=== PATIENT | female | born 1970 | race Caucasian/White ===

== ENCOUNTER 2021-11-19 15:08 | Emergency (ER) | payer BC, OTHER ==
[~2021-11-19 15:08] MED LIST: ADVI200T PO; CALC1CHW PO; OMEP1CAP73 PO; VITMTA PO
[2021-11-19 17:42] LABS: BASO # 0.1 10^3/uL (0.0-0.2); BASO % 0.9 % (0.0-1.0); EOS # 0.2 10^3/uL (0.0-0.5); EOS % 2.5 % (0.0-3.0); HEMATOCRIT 45.3 % (36.0-47.0); HEMOGLOBIN 14.3 g/dl (12.0-15.5); LYMPH # 2.5 10^3/uL (1.5-5.0); LYMPH % 33.6 % (24.0-44.0); MEAN CORPUSCULAR HEMOGLOBIN 27.2 pg (27.0-33.0); MEAN CORPUSCULAR HGB CONC 31.6 g/dl (32.0-36.5); MEAN CORPUSCULAR VOLUME 86.3 fl (80.0-96.0); MONO # 0.5 10^3/uL (0.0-0.8); MONO % 6.9 % (2.0-8.0); NEUTROPHILS # 4.2 10^3/uL (1.5-8.5); NEUTROPHILS % 55.8 % (36.0-66.0); PLATELET COUNT, AUTOMATED 244 10^3/uL (150-450); RED BLOOD COUNT 5.25 10^6/uL (4.00-5.40); WHITE BLOOD COUNT 7.5 10^3/uL (4.0-10.0)
[2021-11-19 18:03] LABS: ALBUMIN 3.2 GM/DL (3.2-5.2); ALT/SGPT 42 U/L (12-78); BILIRUBIN,TOTAL 0.5 MG/DL (0.2-1.0); BLOOD UREA NITROGEN 10 MG/DL (7-18); CALCIUM LEVEL 8.8 MG/DL (8.5-10.1); CARBON DIOXIDE LEVEL 29 MEQ/L (21-32); CHLORIDE LEVEL 104 MEQ/L (98-107); CREATININE FOR GFR 0.68 MG/DL (0.55-1.30); GLOMERULAR FILTRATION RATE > 60.0 (>51); GLUCOSE, FASTING 239 MG/DL (70-100); POTASSIUM SERUM 4.4 MEQ/L (3.5-5.1); SODIUM LEVEL 137 MEQ/L (136-145)
[2021-11-19 20:30] LABS: CK-MB VALUE MASS < 1.0 NG/ML (<3.6); CPK CREATINE PHOSPHOKINASE 37 U/L (26-192)
[2021-11-19] MEDS ORDERED: ONDA4TAB6 PO (20:39)
[2021-11-19 20:47] VITALS: BP 132/76
== END 2021-11-19 20:49 | disposition home or self-care (01) ==
LOC: M ED 15:08 → EDBD 15:08 → M ED 20:49
DX: R51.9 Headache, unspecified (principal); R42 Dizziness and giddiness; R11.0 Nausea; Z98.84 Bariatric surgery status; F41.9 Anxiety disorder, unspecified; Z88.8 Allergy status to other drugs, medicaments and biological substances; Z79.899 Other long term (current) drug therapy

== ENCOUNTER → 2024-10-21 | Outpatient (REF) ==
[~2024-10-21] MED LIST changes: +ONDA-282 PO
== END ==
LOC: M EMP 14:57 → M LAB 14:57
PROVIDERS: ATTEND Family Medicine
DX: D64.9 Anemia, unspecified (principal)

== ENCOUNTER 2024-11-21 08:31 | Emergency (ER) | payer OTHER ==
[~2024-11-21] VITALS: Ht 162.6 cm; Wt 108.6 kg
[2024-11-21] MEDS: KETOROLAC 30 MG/ML 1ML VIAL IV ONE (09:35)
[2024-11-21] MEDS: ACETAMINOPHEN *IV* 1,000 MG in IV 1 EA IV ONE (10:28)
[2024-11-21 12:16] VITALS: BP 129/72; TEMP 98.2
[2024-11-21 12:31] VITALS: O2SAT 97
== END 2024-11-21 12:56 | disposition home or self-care (01) ==
LOC: M ED 08:31 → EDBD 08:31 → M ED 12:56
DX: S29.012A Strain of muscle and tendon of back wall of thorax, initial encounter (principal); S16.1XXA Strain of muscle, fascia and tendon at neck level, initial encounter; S40.012A Contusion of left shoulder, initial encounter; V49.40XA Driver injured in collision with unspecified motor vehicles in traffic accident, initial encounter; M50.323 Other cervical disc degeneration at C6-C7 level; E11.9 Type 2 diabetes mellitus without complications; I10 Essential (primary) hypertension; D50.9 Iron deficiency anemia, unspecified; Z88.6 Allergy status to analgesic agent; Z79.83 Long term (current) use of bisphosphonates; Z79.899 Other long term (current) drug therapy; Y92.410 Unspecified street and highway as the place of occurrence of the external cause; Y93.89 Activity, other specified; Y99.9 Unspecified external cause status
CPT/HCPCS: 70450; 71046; 72072; 72125; 72128; 73000; 73030; 93005; 96365; 99284; J0131

== ENCOUNTER 2025-03-17 12:54 | Emergency (ER) | payer OTHER ==
[~2025-03-17] VITALS: Ht 165.1 cm; Wt 101.3 kg
[2025-03-17] MEDS ORDERED: RIZA10TA2 (13:09)
[2025-03-17] MEDS ORDERED: TIRZ12.5 (13:09)
[2025-03-17] MEDS ORDERED: JARD1TAB3 (13:09)
[2025-03-17] MEDS ORDERED: ATOR1TAB19 (13:09)
[2025-03-17] MEDS ORDERED: SERTRALINE (13:09)
[2025-03-17] MEDS ORDERED: METF-839 (13:09)
[2025-03-17] MEDS ORDERED: CYCL5TAB4 PO (17:28)
[2025-03-17] MEDS ORDERED: NAPR-837 PO (17:28)
[2025-03-17 17:30] VITALS: BP 124/73; O2SAT 99
[2025-03-17 17:46] VITALS: TEMP 98.3
== END 2025-03-17 17:47 | disposition home or self-care (01) ==
LOC: M ED 12:54
DX: S70.02XA Contusion of left hip, initial encounter (principal); S46.819A Strain of other muscles, fascia and tendons at shoulder and upper arm level, unspecified arm, initial encounter; W01.198A Fall on same level from slipping, tripping and stumbling with subsequent striking against other object, initial encounter; M47.812 Spondylosis without myelopathy or radiculopathy, cervical region; E11.9 Type 2 diabetes mellitus without complications; I10 Essential (primary) hypertension; G43.909 Migraine, unspecified, not intractable, without status migrainosus; D50.9 Iron deficiency anemia, unspecified; Z79.02 Long term (current) use of antithrombotics/antiplatelets; Z79.1 Long term (current) use of non-steroidal anti-inflammatories (NSAID); Z79.83 Long term (current) use of bisphosphonates; Z79.899 Other long term (current) drug therapy; Z88.8 Allergy status to other drugs, medicaments and biological substances; Y92.531 Health care provider office as the place of occurrence of the external cause; Y93.89 Activity, other specified; Y99.0 Civilian activity done for income or pay

== ENCOUNTER → 2025-05-16 | Outpatient (CLI) | payer BC ==
[~2025-05-16] MED LIST changes: +ATOR1TAB19; +CYCL5TAB4 PO; +JARD1TAB3; +METF-839; +NAPR-837 PO; +RIZA10TA2; +SERTRALINE; +TIRZ12.5
== END ==
LOC: M RAD 15:38
PROVIDERS: ATTEND Specialist
DX: E04.1 Nontoxic single thyroid nodule (principal)